=== PATIENT | female | born 1980 | race Caucasian/White ===

== ENCOUNTER 2019-09-07 10:09 | Emergency (ER) | payer BC ==
[2019-09-07 10:26] VITALS: BP 155/89
--- NOTE | 2019-09-07 10:52 | UC ---
General HPI - HPI Summary HPI Summary: Ms. Boyce has multiple complaints. The primary one is that she pulled her psoas muscle trying to get off some boots after working outside. It's been taking quite a while to get better and she is frustrated. She's also had some fatigue and feeling like her skin is sensitive. She is worried about Lyme disease because she has cats for got side. She has not had any rash or found a tick on her self. She denies any fevers, chills, myalgias or arthralgias. She hurt her psoas muscle once previously a long time ago. - History of Current Complaint Chief Complaint: UCBackPain Stated Complaint: BACK INJURY Time Seen by Provider: 09/07/19 10:20 Hx Obtained From: Patient Hx Last Menstrual Period: 08/24/19 Onset/Duration: Gradual Onset Onset Severity: Mild Current Severity: Mild Pain Intensity: 1 - Allergy/Home Medications Allergies/Adverse Reactions: Allergies Allergy/AdvReac Type Severity Reaction Status Date / Time No Known Allergies Allergy Verified 09/07/19 10:26 Home Medications: Home Medications Acetaminophen TAB* [Tylenol TAB*] 650 mg PO Q4H PRN 09/07/19 [History Confirmed 09/07/19] PMH/Surg Hx/FS Hx/Imm Hx Previously Healthy: Yes - Surgical History Surgical History: Yes Surgery Procedure, Year, and Place: Appendectomy - Family History Known Family History: Positive: Diabetes Negative: Cardiac Disease - Social History Alcohol Use: Daily Alcohol Amount: 2-4 martinis Substance Use Type: Marijuana Substance Use Comment - Amount & Last Used: occasional Smoking Status (MU): Former Smoker When Did the Patient Quit Smoking/Using Tobacco: 6 months ago Review of Systems All Other Systems Reviewed And Are Negative: Yes Constitutional: Positive: Negative Skin: Positive: Other - Sensitivity Eyes: Positive: Negative ENT: Positive: Negative Respiratory: Positive: Negative Cardiovascular: Positive: Negative Gastrointestinal: Positive: Negative Genitourinary: Positive: Negative Motor: Positive: Negative Neurovascular: Positive: Negative Musculoskeletal: Positive: Other: - She has some tenderness to her low back when she moves.. Negative: Arthralgia, Myalgia Neurological: Positive: Negative Psychological: Positive: Negative Is Patient Immunocompromised?: No Physical Exam - Summary Physical Exam Summary: She is nontoxic in appearance with stable vital signs. Triage Information Reviewed: Yes Appearance: Well-Appearing Vital Signs: Initial Vital Signs Temp 97.1 F 09/07/19 10:20 Pulse 77 09/07/19 10:20 Resp 16 09/07/19 10:20 BP 155/89 09/07/19 10:20 Pulse Ox 100 09/07/19 10:20 Vital Signs Reviewed: Yes Eye Exam: Normal ENT Exam: Normal Neck exam: Normal Respiratory Exam: Normal Respiratory: Positive: Lungs clear, Normal breath sounds, No respiratory distress, No accessory muscle use Cardiovascular: Positive: RRR, No Murmur Abdominal Exam: Normal Musculoskeletal Exam: Normal Neurological Exam: Normal Psychological Exam: Normal - She is a little bit emotionally labile when talking about all of the problems. Course/Dx - Course Course Of Treatment: I don't have a lot to offer her here. We are drawing some blood including a tickborne panel. I recommended that she follow up with [facility] as she has no PCP and they may be able to pursue this further. Her back injury is improving at this point I think medication would not be indicated aside from ibuprofen. - Diagnoses Provider Diagnosis: Low back strain Discharge ED - Sign-Out/Discharge Documenting (check all that apply): Patient Departure All imaging exams completed and their final reports reviewed: No Studies - Discharge Plan Condition: Stable Disposition: HOME Patient Education Materials: Low Back Strain (ED) Referrals: No Primary Care Phys,NOPCP [Primary Care Provider] - [facility] [Outside] Additional Instructions: Blood was drawn today and sent to the lab including a Lyme panel. Results for some of the tests will be available tomorrow but the Lyme test may take up to a week. We will let you know of any abnormal test results. - Billing Disposition and Condition Condition: STABLE Disposition: Home
[2019-09-07 16:51] LABS: ABS Basophils 0.1 10^3/ul (0-0.2); ABS Eosinophils 0.2 10^3/ul (0-0.6); ABS Lymphocytes 1.6 10^3/ul (1.0-4.8); ABS Monocytes 0.4 10^3/ul (0-0.8); ABS Neutrophils 4.5 10^3/ul (1.5-7.7); Eosinophil % 3.5 %; Hematocrit 42 % (35-47); Hemoglobin 14.4 g/dL (12.0-16.0); Lymphocyte % 23.4 %; Mean Corpuscular HGB Conc 34 g/dL (31-36); Mean Corpuscular Hemoglobin 33 pg (27-31); Mean Corpuscular Volume 96 fL (80-97); Mean Platelet Volume 7.6 fL (7.4-10.4); Nucleated Red Blood Cells % 0.1; Platelet Count 274 10^3/uL (150-450); Red Blood Count 4.39 10^6 /uL (3.70-4.87); Red Cell Distribution Width 15 % (10-15); White Blood Count 6.8 10^3/uL (3.5-10.8)
[2019-09-07 16:55] LABS: Albumin 4.6 g/dL (3.2-5.2); Calcium 9.7 mg/dL (8.6-10.3); Potassium 4.2 mmol/L (3.5-5.0); Total Bilirubin 0.7 mg/dL (0.2-1.0)
[2019-09-07 17:01] LABS: Albumin/Globulin Ratio 1.6 (1-3); BUN/Creatinine Ratio 16.2 (8-20); EGFR African American 70.2 (>60); Globulin 2.8 g/dL (2-4); Total Protein 7.4 g/dL (6.4-8.9)
[2019-09-07 17:44] LABS: TSH (Thyroid Stimulating Horm) 120.32 mcIU/mL (0.34-5.60)
--- NOTE | 2019-09-08 08:24 | UC ---
- Progress Note Progress Note: Reviewed blood work as available (not all yet available). TSH very high. ALT AST high. Creat 1.05 (minimally elevated). RN to call pt. She will need to follow up with primary care physician MICAH, early THIS WEEK. If symptoms worse or any new symptoms arise, then go to the Emergency Department. Course/Dx - Diagnoses Provider Diagnoses: Low back strain Discharge ED - Sign-Out/Discharge Documenting (check all that apply): Post-Discharge Follow Up All imaging exams completed and their final reports reviewed: No Studies - Discharge Plan Condition: Stable Disposition: HOME Patient Education Materials: Low Back Strain (ED) Referrals: [facility] [Outside] No Primary Care Phys,NOPCP [Primary Care Provider] - Additional Instructions: Blood was drawn today and sent to the lab including a Lyme panel. Results for some of the tests will be available tomorrow but the Lyme test may take up to a week. We will let you know of any abnormal test results. - Billing Disposition and Condition Condition: STABLE Disposition: Home
[2019-09-10 17:29] LABS: Anaplasma phagocytophilum Negative (Negative); B. miyamotoi PCR, B Negative (Negative); Babesia divergens/MO-1 Negative (Negative); Babesia ducani Negative (Negative); Ehrlichia chaffeensis Negative (Negative); Ehrlichia ewingii/canis Negative (Negative); Ehrlichia muris eauclairensis Negative (Negative)
== END 2019-09-07 11:02 | disposition home or self-care (01) ==
LOC: UCEAST 10:09
DX: S39.012A Strain of muscle, fascia and tendon of lower back, initial encounter (principal); Z87.891 Personal history of nicotine dependence; X58.XXXA Exposure to other specified factors, initial encounter; Y92.9 Unspecified place or not applicable
CPT/HCPCS: 36415; 80053; 84443; 85025; 86618; 87798; 99201; G0463